=== PATIENT | male | born 1980 | race Caucasian/White ===

== ENCOUNTER 2021-03-28 11:31 | Emergency (ER) | payer OTHER ==
[2021-03-28 11:40] VITALS: BP 107/72; PULSE 77; TEMP 97.6; BMI 24.6
== END 2021-03-28 13:29 | disposition home or self-care (01) ==
LOC: JERFT 11:31
DX: S63.502A Unspecified sprain of left wrist, initial encounter (principal); S60.212A Contusion of left wrist, initial encounter; W00.0XXA Fall on same level due to ice and snow, initial encounter
CPT/HCPCS: 73110-TC-LT-FY; 99283-25